=== PATIENT | male | born 1925 | race Two or more races ===

== ENCOUNTER 2016-05-24 11:54 | Inpatient (IN) | payer MEDICARE, MEDICAID ==
[~2016-05-24] VITALS: Ht 167.6 cm; Wt 52.3 kg
[~2016-05-24 11:54] MED LIST: ASPI-498 OR; ATOR40TA52 PO; CLOP75TA28 PO; FLUO-125 PO; METF-312 PO; METH10TA87 PO; METO25TA62 PO; SITA100T7 PO; TAMS0.4C36 PO; [UNRECOGNIZED DRUG - CODE] OR
[2016-05-24] MEDS ORDERED: ALBUTEROL SULF 2.5 MG/0.5ML(0.5%) NEB SOLN HHN STA (12:54)
[2016-05-24] MEDS ORDERED: IPRATROPIUM BROM 0.5 MG/2.5ML INH SOL NEB ONE (13:00)
[2016-05-24] MEDS ORDERED: LEVOFLOXACIN 500MG 100 ML IV ONE (13:00)
[2016-05-24] MEDS: SODIUM CHLORIDE 0.9% 1,000 ML IV SCH (13:00)
[2016-05-24] MEDS ORDERED: methylPREDNISolone SOD SUCC 125 MG/2 ML VL IV ONE (13:00)
[2016-05-24] MEDS ORDERED: NOREPINEPHRINE BITARTRATE 250 ML IV SCH (13:30)
[2016-05-24] MEDS ORDERED: MORPHINE SULF INJ 2 MG/ML SYRINGE 1ML IV PRN ×2 (13:30)
[2016-05-24] MEDS ORDERED: PROMETHAZINE HCL 25 MG/ML 1ML IV PRN (13:30)
[2016-05-24] MEDS ORDERED: OSELTAMIVIR 75 MG CAP PO ONE (13:30)
[2016-05-24] MEDS ORDERED: SODIUM CHLORIDE 0.9% 500 ML IV ONE (13:30)
[2016-05-24] MEDS ORDERED: NITROGLYCERIN 0.4 MG SL TAB SL PRN (13:30)
[2016-05-24] MEDS ORDERED: LORazepam 0.5 MG TAB PO PRN (13:30)
[2016-05-24] MEDS ORDERED: HYDROcodone-ACET 5/325MG TAB PO PRN (13:30)
[2016-05-24] MEDS ORDERED: TEMAZEPAM 15 MG CAP PO PRN (13:30)
[2016-05-24] MEDS ORDERED: LACTULOSE 20Gm/30ML SOLN PO PRN (13:30)
[2016-05-24] MEDS ORDERED: ALBUTEROL SULF 2.5 MG/0.5ML(0.5%) NEB SOLN NEB PRN (13:30)
[2016-05-24] MEDS ORDERED: cefTRIAXone 1GM/50ML D5W 50 ML IV SCH (13:30)
[2016-05-24] MEDS ORDERED: ACETAMINOPHEN 500 MG TAB PO PRN (13:30)
[2016-05-24 13:35] LABS: Lactic Acid 6.2 mmol/L (0.4-2.0)
[2016-05-24 13:44] LABS: Basophils # (auto) 0 uL; Basophils % (auto) 0.1 % (0.0-2.0); Eosinophils # (auto) 0 uL; Eosinophils % (auto) 0.3 % (0.0-7.0); Hematocrit 33.3 % (41.0-53.0); Hemoglobin 10.1 g/dL (13.5-17.5); Lymphocytes # (auto) 0.5 uL; Lymphocytes % (auto) 4.9 % (10.0-50.0); Mean Corpuscular Hemoglobin 28.6 pg (28.0-32.0); Mean Corpuscular Hgb Conc. 30.4 g/dL (32.0-36.0); Mean Corpuscular Volume 94.2 fL (80.0-100.0); Mean Platelet Volume 8.6 fL (7.4-10.4); Monocytes # (auto) 0.6 uL; Monocytes % (auto) 6.6 % (0.0-12.0); Neutrophils # (auto) 8.1 uL; Neutrophils % (auto) 88.1 % (37.0-80.0); Platelet Count (auto) 425 10^3/uL (140-450); REFLEX LACTIC ACID YES OR NO YES; Red Cell Distribution Width 18.4 % (11.6-16.0); White Blood Cell 9.2 10^3/uL (4.4-10.8)
[2016-05-24] MEDS ORDERED: ACETAMINOPHEN 325 MG TAB PO ONE (13:45)
[2016-05-24] MEDS: SODIUM CHLOR 0.9% PF (SALINE LOCK) 10ML VIAL IV SCH ×2 (14:00→22:24)
[2016-05-24] MEDS: AZITHROMYCIN 500MG/D5W 250ML 250 ML IV SCH (14:30)
[2016-05-24 15:10] LABS: Albumin 2.3 g/dL (3.4-5.0); Calcium 8.2 mg/dL (8.5-10.1); Potassium 4.4 mmol/L (3.5-5.1)
[2016-05-24] MEDS: ENOXAPARIN SOD 40 MG/0.4 ML SYRINGE SC SCH (15:15)
[2016-05-24 15:19] LABS: Bilirubin, Total 0.3 mg/dL (0.2-1.0); Magnesium 1.8 mg/dL (1.6-2.6)
[2016-05-24 15:56] LABS: B-Type Natriuretic Peptide 208.08 pg/mL (0-100); Temperature: 23.4 C (20.0-25.0)
[2016-05-24] MEDS: IPRATROPIUM BROM 0.5 MG/2.5ML INH SOL NEB SCH (18:00)
[2016-05-24] MEDS: ALBUTEROL SULF 2.5 MG/0.5ML(0.5%) NEB SOLN NEB SCH (18:00)
[2016-05-24] MEDS: methylPREDNISolone SOD SUCC 40 MG/ML VL IV SCH (18:02)
[2016-05-24 20:58] VITALS: BP 101/61
[2016-05-24] MEDS ORDERED: PIPERACILLIN-TAZOB 3.375GM 100 ML IV ONE (21:15)
[2016-05-24] MEDS: PIPERACILLIN-TAZOB 3.375GM 100 ML IV SCH (21:15)
[2016-05-24] MEDS: OSELTAMIVIR 75 MG CAP PO SCH (22:24)
[2016-05-25] MEDS: ALBUTEROL SULF 2.5 MG/0.5ML(0.5%) NEB SOLN NEB SCH ×4 (00:40→18:59)
[2016-05-25] MEDS: IPRATROPIUM BROM 0.5 MG/2.5ML INH SOL NEB SCH ×4 (00:40→18:59)
[2016-05-25] MEDS: PIPERACILLIN-TAZOB 3.375GM 100 ML IV SCH ×4 (03:26→20:55)
[2016-05-25] MEDS: SODIUM CHLORIDE 0.9% 1,000 ML IV SCH (04:02)
[2016-05-25] MEDS: methylPREDNISolone SOD SUCC 40 MG/ML VL IV SCH ×5 (06:00→23:55)
[2016-05-25] MEDS: SODIUM CHLOR 0.9% PF (SALINE LOCK) 10ML VIAL IV SCH ×3 (06:11→21:59)
[2016-05-25 06:25] LABS: Basophils # (auto) 0 uL; Basophils % (auto) 0.2 % (0.0-2.0); Eosinophils # (auto) 0 uL; Hematocrit 29.1 % (41.0-53.0); Hemoglobin 9.1 g/dL (13.5-17.5); Lymphocytes # (auto) 0.9 uL; Lymphocytes % (auto) 16.4 % (10.0-50.0); Mean Corpuscular Hgb Conc. 31.2 g/dL (32.0-36.0); Mean Corpuscular Volume 93.1 fL (80.0-100.0); Mean Platelet Volume 7.8 fL (7.4-10.4); Monocytes # (auto) 0.2 uL; Neutrophils # (auto) 4.4 uL; Neutrophils % (auto) 80.4 % (37.0-80.0); Platelet Count (auto) 323 10^3/uL (140-450); Red Cell Distribution Width 18.4 % (11.6-16.0); White Blood Cell 5.5 10^3/uL (4.4-10.8)
[2016-05-25 06:55] LABS: Potassium 4.4 mmol/L (3.5-5.1)
[2016-05-25 07:07] LABS: Albumin 2.1 g/dL (3.4-5.0); BUN/Creatinine Ratio 24.1; Calcium 7.8 mg/dL (8.5-10.1)
[2016-05-25 07:19] LABS: Bilirubin, Total 0.3 mg/dL (0.2-1.0); Total Protein 6.3 g/dL (6.4-8.2)
[2016-05-25 07:21] LABS: B-Type Natriuretic Peptide 567.64 pg/mL (0-100)
[2016-05-25] MEDS: AZITHROMYCIN 500MG/D5W 250ML 250 ML IV SCH (10:11)
[2016-05-25] MEDS: OSELTAMIVIR 75 MG CAP PO SCH (10:14)
[2016-05-25] MEDS: ENOXAPARIN SOD 40 MG/0.4 ML SYRINGE SC SCH (10:14)
[2016-05-25] MEDS ORDERED: PANTOPRAZOLE 40 MG TAB PO ONE (13:45)
[2016-05-25 14:19] LABS: Hematocrit 30.4 % (41.0-53.0); Hemoglobin 9.4 g/dL (13.5-17.5)
[2016-05-25 15:00] VITALS: BP 98/51
[2016-05-25 16:01] LABS: INR 1.22 (0.9-1.15); Prothrombin Time 12.6 sec (9.37-12.3)
[2016-05-25 17:20] VITALS: BP 98/51
[2016-05-25 17:29] LABS: Urine Bilirubin Negative (Negative); Urine Blood Negative /uL (Negative); Urine Color Yellow (Yellow); Urine Glucose Normal (Normal); Urine Hyaline Cast FEW /lpf (0 - 2); Urine Ketone Negative (Negative); Urine Mucus FEW (None Seen); Urine Nitrite Negative (Negative); Urine RBC 12 /hpf (0 - 3); Urine Squamous Epithelial Cell FEW /hpf (<5); Urine Urobilinogen Normal (Negative)
[2016-05-25 21:51] VITALS: BP 122/59
[2016-05-25 22:43] LABS: Hematocrit 28.9 % (41.0-53.0)
[2016-05-26] MEDS: IPRATROPIUM BROM 0.5 MG/2.5ML INH SOL NEB SCH ×4 (01:08→18:59)
[2016-05-26] MEDS: ALBUTEROL SULF 2.5 MG/0.5ML(0.5%) NEB SOLN NEB SCH ×4 (01:08→18:58)
[2016-05-26] MEDS: PIPERACILLIN-TAZOB 3.375GM 100 ML IV SCH ×4 (02:42→20:59)
[2016-05-26 05:40] LABS: Basophils # (auto) 0 uL; Eosinophils # (auto) 0 uL; Hematocrit 28.5 % (41.0-53.0); Hemoglobin 8.9 g/dL (13.5-17.5); Lymphocytes # (auto) 0.5 uL; Lymphocytes % (auto) 5.9 % (10.0-50.0); Mean Corpuscular Hemoglobin 28.9 pg (28.0-32.0); Mean Corpuscular Hgb Conc. 31.2 g/dL (32.0-36.0); Mean Corpuscular Volume 92.6 fL (80.0-100.0); Mean Platelet Volume 8.1 fL (7.4-10.4); Monocytes # (auto) 0.4 uL; Monocytes % (auto) 4.5 % (0.0-12.0); Neutrophils # (auto) 7.4 uL; Neutrophils % (auto) 89.6 % (37.0-80.0); Platelet Count (auto) 338 10^3/uL (140-450); Red Cell Distribution Width 18.7 % (11.6-16.0); White Blood Cell 8.2 10^3/uL (4.4-10.8)
[2016-05-26] MEDS: SODIUM CHLOR 0.9% PF (SALINE LOCK) 10ML VIAL IV SCH ×3 (05:41→21:29)
[2016-05-26] MEDS: methylPREDNISolone SOD SUCC 40 MG/ML VL IV SCH ×4 (05:41→23:51)
[2016-05-26 05:46] VITALS: BP 114/67
[2016-05-26 05:57] LABS: Calcium 7.6 mg/dL (8.5-10.1); Potassium 3.8 mmol/L (3.5-5.1)
[2016-05-26 06:01] LABS: Albumin 2.2 g/dL (3.4-5.0); BUN/Creatinine Ratio 20.5
[2016-05-26 06:03] LABS: Bilirubin, Total 0.3 mg/dL (0.2-1.0); Total Protein 6.2 g/dL (6.4-8.2)
[2016-05-26 06:13] LABS: Temperature: 20.8 C (20.0-25.0)
[2016-05-26 08:00] VITALS: BP 124/64
[2016-05-26 08:35] VITALS: BP 124/64
[2016-05-26] MEDS: PANTOPRAZOLE 40 MG TAB PO SCH (10:48)
[2016-05-26] MEDS: AZITHROMYCIN 500MG/D5W 250ML 250 ML IV SCH (10:48)
[2016-05-26 13:00] VITALS: BP 118/59
[2016-05-26 16:42] VITALS: BP 136/70
[2016-05-26 22:00] VITALS: BP 137/69
[2016-05-27] VITALS (7 sets, daily range): BP systolic 114–146; BP diastolic 59–80
[2016-05-27] MEDS: ALBUTEROL SULF 2.5 MG/0.5ML(0.5%) NEB SOLN NEB SCH ×4 (01:07→18:46)
[2016-05-27] MEDS: IPRATROPIUM BROM 0.5 MG/2.5ML INH SOL NEB SCH ×4 (01:08→18:46)
[2016-05-27] MEDS: PIPERACILLIN-TAZOB 3.375GM 100 ML IV SCH ×2 (02:34→09:02)
[2016-05-27] MEDS: SODIUM CHLOR 0.9% PF (SALINE LOCK) 10ML VIAL IV SCH ×3 (05:44→22:52)
[2016-05-27] MEDS: methylPREDNISolone SOD SUCC 40 MG/ML VL IV SCH ×2 (05:44→12:49)
[2016-05-27] MEDS: PANTOPRAZOLE 40 MG TAB PO SCH (10:12)
[2016-05-27] MEDS: AZITHROMYCIN 500MG/D5W 250ML 250 ML IV SCH (10:12)
[2016-05-27] MEDS ORDERED: FUROSEMIDE 40 MG/4 ML VIAL IV ONE ×2 (12:30→12:45)
[2016-05-27] MEDS: ENALAPRIL MALEATE 2.5 MG TAB PO SCH ×2 (14:08→22:53)
[2016-05-27] MEDS: FUROSEMIDE 40 MG/4 ML VIAL IV SCH (18:21)
[2016-05-28] MEDS: ALBUTEROL SULF 2.5 MG/0.5ML(0.5%) NEB SOLN NEB SCH ×4 (01:16→19:21)
[2016-05-28] MEDS: IPRATROPIUM BROM 0.5 MG/2.5ML INH SOL NEB SCH ×4 (01:17→19:21)
[2016-05-28 05:39] VITALS: BP 110/53
[2016-05-28] MEDS: FUROSEMIDE 40 MG/4 ML VIAL IV SCH ×2 (05:42→09:50)
[2016-05-28] MEDS: SODIUM CHLOR 0.9% PF (SALINE LOCK) 10ML VIAL IV SCH ×3 (05:42→22:00)
[2016-05-28 06:37] LABS: Basophils # (auto) 0 uL; Eosinophils # (auto) 0 uL; Eosinophils % (auto) 0.3 % (0.0-7.0); Hemoglobin 9.7 g/dL (13.5-17.5); Lymphocytes # (auto) 1.4 uL; Lymphocytes % (auto) 11.8 % (10.0-50.0); Mean Corpuscular Hemoglobin 29.3 pg (28.0-32.0); Mean Corpuscular Hgb Conc. 31.4 g/dL (32.0-36.0); Mean Corpuscular Volume 93.3 fL (80.0-100.0); Mean Platelet Volume 8.1 fL (7.4-10.4); Monocytes # (auto) 0.7 uL; Monocytes % (auto) 6.1 % (0.0-12.0); Neutrophils # (auto) 9.9 uL; Neutrophils % (auto) 81.8 % (37.0-80.0); Platelet Count (auto) 358 10^3/uL (140-450); Red Cell Distribution Width 18.1 % (11.6-16.0); White Blood Cell 12.1 10^3/uL (4.4-10.8)
[2016-05-28 08:47] LABS: BUN/Creatinine Ratio 22.5; Calcium 8.2 mg/dL (8.5-10.1); Potassium 3.2 mmol/L (3.5-5.1)
[2016-05-28 09:00] VITALS: BP 113/49
[2016-05-28] MEDS ORDERED: POTASSIUM CHL 20 Meq TABLET PO ONE (09:30)
[2016-05-28] MEDS: PANTOPRAZOLE 40 MG TAB PO SCH (09:50)
[2016-05-28] MEDS: methylPREDNISolone SOD SUCC 40 MG/ML VL IV SCH ×2 (09:50→21:57)
[2016-05-28] MEDS: AZITHROMYCIN 500MG/D5W 250ML 250 ML IV SCH (09:51)
[2016-05-28] MEDS ORDERED: FUROSEMIDE 40 MG/4 ML VIAL IV SCH (10:00)
[2016-05-28 13:00] VITALS: BP 117/64
[2016-05-28] MEDS ORDERED: ERTAPENEM SOD INJ 1 GM in SODIUM CHL 0.9% 50 ML IV ONE (13:45)
[2016-05-28 17:00] VITALS: BP 90/48
[2016-05-28 20:00] VITALS: BP 86/45
[2016-05-28 20:10] VITALS: BP 86/45
[2016-05-29] MEDS: ALBUTEROL SULF 2.5 MG/0.5ML(0.5%) NEB SOLN NEB SCH ×4 (00:14→19:34)
[2016-05-29] MEDS: IPRATROPIUM BROM 0.5 MG/2.5ML INH SOL NEB SCH ×4 (00:14→19:34)
[2016-05-29 05:00] VITALS: BP 101/52
[2016-05-29] MEDS: SODIUM CHLOR 0.9% PF (SALINE LOCK) 10ML VIAL IV SCH ×3 (06:42→21:28)
[2016-05-29 08:00] VITALS: BP 109/53
[2016-05-29 08:27] LABS: BUN/Creatinine Ratio 26.1; Calcium 8.6 mg/dL (8.5-10.1); Potassium 4.2 mmol/L (3.5-5.1)
[2016-05-29 08:30] VITALS: BP 109/53
[2016-05-29] MEDS: Boost Glucose Control 8 Ounces PO SCH ×3 (10:00→20:00)
[2016-05-29] MEDS: FUROSEMIDE 40 MG/4 ML VIAL IV SCH (10:25)
[2016-05-29] MEDS: PANTOPRAZOLE 40 MG TAB PO SCH (10:25)
[2016-05-29] MEDS: AZITHROMYCIN 500MG/D5W 250ML 250 ML IV SCH (10:25)
[2016-05-29] MEDS: methylPREDNISolone SOD SUCC 40 MG/ML VL IV SCH ×2 (10:25→21:28)
[2016-05-29] MEDS: ERTAPENEM SOD INJ 1 GM in SODIUM CHL 0.9% 50 ML IV SCH (12:00)
[2016-05-29] MEDS ORDERED: DEXTROSE (50%) 50ML SYRG IV PRN (12:15)
[2016-05-29 13:00] VITALS: BP 97/56
[2016-05-29 16:53] VITALS: BP 94/58
[2016-05-29] MEDS: ACCU-CHEK COMFORT CURVE STRIP VI SCH ×2 (17:39→21:28)
[2016-05-29] MEDS: InsuLIN REG 1unit/0.01ml Soln (100units/ml) SC SCH (17:41)
[2016-05-29] MEDS: PRO-STAT 64 30ML PO SCH (18:00)
[2016-05-29 22:00] VITALS: BP 97/50
[2016-05-29] MEDS ORDERED: InsuLIN REG 1unit/0.01ml Soln (100units/ml) SC SCH (22:00)
[2016-05-30] MEDS: IPRATROPIUM BROM 0.5 MG/2.5ML INH SOL NEB SCH ×3 (00:34→11:25)
[2016-05-30] MEDS: ALBUTEROL SULF 2.5 MG/0.5ML(0.5%) NEB SOLN NEB SCH ×3 (00:34→11:26)
[2016-05-30 05:00] VITALS: BP 94/56
[2016-05-30] MEDS: SODIUM CHLOR 0.9% PF (SALINE LOCK) 10ML VIAL IV SCH ×2 (06:17→14:23)
[2016-05-30] MEDS: ACCU-CHEK COMFORT CURVE STRIP VI SCH ×3 (06:30→17:14)
[2016-05-30] MEDS: InsuLIN REG 1unit/0.01ml Soln (100units/ml) SC SCH ×3 (06:33→17:26)
[2016-05-30 08:00] VITALS: BP 95/55
[2016-05-30 08:34] VITALS: BP 95/55
[2016-05-30] MEDS ORDERED: SULF400T11 PO (09:42)
[2016-05-30] MEDS ORDERED: AZITHROMYCIN 250 MG TAB PO SCH (10:00)
[2016-05-30] MEDS: methylPREDNISolone SOD SUCC 40 MG/ML VL IV SCH (10:13)
[2016-05-30] MEDS: PANTOPRAZOLE 40 MG TAB PO SCH (10:13)
[2016-05-30] MEDS: Boost Glucose Control 8 Ounces PO SCH ×3 (10:13→20:00)
[2016-05-30] MEDS: PRO-STAT 64 30ML PO SCH ×2 (10:13→18:00)
[2016-05-30] MEDS: ERTAPENEM SOD INJ 1 GM in SODIUM CHL 0.9% 50 ML IV SCH (12:00)
[2016-05-30 13:00] VITALS: BP 102/56
[2016-05-30 15:12] VITALS: BP 102/56
[2016-05-30 17:15] VITALS: BP 95/55
== END 2016-05-30 22:25 | disposition hospice, home (50) | DRG 871 ==
LOC: EDBD 11:54 → ER 11:55 → TELE 11:56 → TELE-CENTR 05-25 14:45 → CENTRAL 05-30 14:49
PROVIDERS: ADMIT Internal Medicine; ATTEND Internal Medicine
DX: A41.9 Sepsis, unspecified organism (principal); J96.00 Acute respiratory failure, unspecified whether with hypoxia or hypercapnia; J18.9 Pneumonia, unspecified organism; I50.33 Acute on chronic diastolic (congestive) heart failure; E43 Unspecified severe protein-calorie malnutrition; J44.1 Chronic obstructive pulmonary disease with (acute) exacerbation; N39.0 Urinary tract infection, site not specified; Z68.1 Body mass index [BMI] 19.9 or less, adult; E11.9 Type 2 diabetes mellitus without complications; B96.20 Unspecified Escherichia coli [E. coli] as the cause of diseases classified elsewhere; E03.9 Hypothyroidism, unspecified; I25.10 Atherosclerotic heart disease of native coronary artery without angina pectoris; I27.2 Other secondary pulmonary hypertension; N40.0 Benign prostatic hyperplasia without lower urinary tract symptoms; J84.112 Idiopathic pulmonary fibrosis; W19.XXXA Unspecified fall, initial encounter; R56.9 Unspecified convulsions; I11.0 Hypertensive heart disease with heart failure; Z95.1 Presence of aortocoronary bypass graft; Z86.73 Personal history of transient ischemic attack (TIA), and cerebral infarction without residual deficits; Z99.81 Dependence on supplemental oxygen; Y93.89 Activity, other specified; Y92.89 Other specified places as the place of occurrence of the external cause; Y99.8 Other external cause status; Z98.49 Cataract extraction status, unspecified eye; Z79.82 Long term (current) use of aspirin; Z79.899 Other long term (current) drug therapy
CPT/HCPCS: 36415; 36600; 71010; 80048; 80053; 81001; 82550; 82805; 82962; 83605; 83735; 83880; 84443; 84484; 85014; 85018; 85025; 85610; 87040; 87081; 87086; 87088; 87186; 87400; 93005; 93306; 94640; 96361; 96365; 96367; 96372; 96375; 99291; J0696; J1335; J1815; J1956; J2543